=== PATIENT | female | born 1960 | race Caucasian/White ===

== ENCOUNTER → 2020-10-18 07:51 | Outpatient (CLI) | payer OTHER, SELFPAY ==
--- NOTE | ~2020-10-18 | MMUS_ITS ---
EXAMINATION: MM diagnostic lele BI w ana, US breast LT complete HISTORY: New left axillary tail asymmetry TECHNIQUE: Bilateral ML, MLO and craniocaudal full field and left spot 3-D tomosynthesis images were performed and synthetic 2-D images were generated. Left rolled medial and lateral craniocaudal views, exaggerated left craniocaudal view. 3 3V and right and the distal radial and the medial and 20 and 2 0 AP and CAD analysis was submitted and interpreted. High resolution breast ultrasound was performed. COMPARISON: 09/24/2019, 09/19/2018, 09/17/2017, 08/29/2016, 08/28/2015, 09/12/2014 bilateral digital scr eening mammogram examinations FINDINGS: MAMMOGRAPHIC FINDINGS: Bilateral benign-appearing axillary lymph nodes are noted. There is no suspicious mass, architectural distortion, malignant calcification, skin thickening or retraction in the left axillary area. There is stable mild fibroglandular asymmetry. No suspicious mass or architectural distortion, malign ant calcification, skin thickening or retraction or significant new or developing density of either b reast is detected. ULTRASOUND: At 10:00 considerably remote from the area of clinical complaint (axillary tail), there is a small ov al parallel hypoechoic or sonolucent lesion measuring approximately 1.5 x 2.9 mm, without internal va scularity or posterior shadowing. The sonographic features suggest benign process. No suspicious sonographic mass or shadowing is detected anywhere in the left breast. IMPRESSION: 1. No mammographic evidence of malignancy 2. Routine mammographic screening is recommended. BI-RADS Category 2: Benign finding(s). Reviewed, dictated and finalized at location A. 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 No mammographic evidence of malignancy 2. Routine mammographic screening is recommended. BI-RADS Category 2: Benign finding(s).
== END ==
PROVIDERS: PCP Family Medicine; Visit Provider Nurse Practitioner
DX: N64.59 Other signs and symptoms in breast (principal)
CPT/HCPCS: 76641; 77062; 77066; G0279

== ENCOUNTER → 2021-10-04 06:57 | Outpatient (CLI) | payer OTHER, SELFPAY ==
--- NOTE | ~2021-10-04 | MM_ITS ---
EXAMINATION: MM screening lele BI w ana HISTORY: Screening mammogram TECHNIQUE: Craniocaudal and mediolateral oblique 3-D tomosynthesis images were obtained and synthetic 2-D images were generated. CAD analysis was submitted and interpreted. COMPARISON: 10/18/2020 bilateral diagnostic mammogram and complete left breast ultrasound 09/2019, 09/19/2018, 09/17/2017 bilateral screening mammogram examinations BREAST PARENCHYMAL COMPOSITION: The breasts are heterogeneously dense, which may obscure small masses . FINDINGS: There is no evidence of suspicious mass, calcification, or architectural distortion to sugg est malignancy in either breast. There has been no suspicious interval change. IMPRESSION: 1. No mammographic evidence of malignancy. 2. Recommend routine screening mammography in one year. BI-RADS Category 1: Negative Reviewed, dictated and finalized at location A. 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
== END ==
PROVIDERS: PCP Internal Medicine; Visit Provider Obstetrics & Gynecology Gynecology
DX: Z12.31 Encounter for screening mammogram for malignant neoplasm of breast (principal)
CPT/HCPCS: 77063; 77067

== ENCOUNTER 2021-10-10 12:58 | Outpatient (CLI) | payer OTHER, SELFPAY ==
--- NOTE | ~2021-10-10 | CT_ITS ---
EXAMINATION: CT thoracic spine wo con DATE: 10/10/2021 13:19 INDICATION: Wedge compression fracture of unspecified thoracic vertebra. Mid and upper back pain. TECHNIQUE: Computed tomography (CT) of the thoracic spine was performed without intravenous contrast. Automated exposure control and iterative reconstruction technique were employed. The dose-length pro duct was 502.31 mGy-cm. COMPARISON: None FINDINGS: There is mild scarring at the lung apices. There is mild emphysema. There is kyphosis of th oracic spine. There is a compression fracture of T8 with 2/5 loss of height. There is mildly decrease d disc height from T3-T4 through T11-T12. There is multilevel facet joint osteoarthritis, severe bila terally at T2-T3 and T3-T4. There is mild right neural foraminal stenosis at T12-L1. There is mild le ft neural foraminal stenosis at T1-T2, T2-T3, and T3-T4. No central canal stenosis. IMPRESSION: 1. T8 compression fracture, likely acute or subacute. 2. Mild thoracic spondylosis. 3. Thoracic kyphosis. Reviewed, dictated and finalized at location A. 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
== END 2021-10-10 12:59 | disposition home or self-care (01) ==
LOC: ANHIMG 13:02
PROVIDERS: PCP Internal Medicine; Visit Provider Nurse Practitioner
DX: S22.000A Wedge compression fracture of unspecified thoracic vertebra, initial encounter for closed fracture (principal); X58.XXXA Exposure to other specified factors, initial encounter; M47.894 Other spondylosis, thoracic region
CPT/HCPCS: 72128

== ENCOUNTER → 2021-10-17 02:11 | Outpatient (CLI) | payer OTHER, SELFPAY ==
[2021-10-17 18:14] LABS: SARS-CoV-2 RNA PCR Negative
== END ==
PROVIDERS: PCP Internal Medicine; Visit Provider Pain Medicine Pain Medicine
DX: Z01.812 Encounter for preprocedural laboratory examination (principal); Z20.822 Contact with and (suspected) exposure to COVID-19
CPT/HCPCS: C9803; U0003; U0005

== ENCOUNTER → 2021-12-04 11:07 | Outpatient (CLI) | payer OTHER, SELFPAY ==
--- NOTE | ~2021-12-04 | XR_ITS ---
EXAMINATION: XR thoracic spine 3V EXAM DATE: 12/04/2021 11:36 INDICATION: Thoracic back pain. TECHNIQUE: Frontal and lateral projections of the thoracic spine as well as lateral swimmers projecti on of the upper thoracic spine for interpretation. There is no prior study for comparison. FINDINGS: There is moderate anterior wedging of a midthoracic level, could be T8, has been treated w ith methylmethacrylate injection, vertebroplasty. The vertebral bodies are aligned in the AP dimensio n. Mild thoracolumbar levoscoliosis. Mild thoracic disc disease. Paraspinal soft tissue is unremark able. IMPRESSION: 1. Treated T8 compression fracture. 2. Mild thoracic spondylosis. 3. Mild thoracolumbar levoscoliosis. Reviewed, dictated and finalized at location A. 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
== END ==
PROVIDERS: Visit Provider Nurse Practitioner Adult Health
DX: M47.894 Other spondylosis, thoracic region (principal)
CPT/HCPCS: 72072

== ENCOUNTER 2022-02-25 08:16 | Outpatient (CLI) | payer OTHER, SELFPAY ==
--- NOTE | ~2022-02-25 | US_ITS ---
EXAMINATION: US arterial ankle brachial ind EXAM DATE: 02/25/2022 08:54 INDICATION: Peripheral vascular disease. Toe discoloration when cold. TECHNIQUE: Segmental pressures and plethysmographic and Doppler waveforms of the brachial and lower e xtremity arteries were obtained. There is no prior study for comparison. FINDINGS: Right and left brachial artery pressures of 136 mm Hg and 130 mm Hg, respectively, are concordant (no rmal difference <= 30 mmHg). RIGHT LEG: The ankle-brachial index (DIVYA) is 1.07 (normal >= 0.9-1). The great toe-brachial index (TBI) is 0.37 (normal >= 0.65). The lower extremity ratios, segmental pressure gradients as follows; Dorsalis pedis: 0.88 (119 mmHg). Posterior tibial: 1.07 (145 mmHg). (Normal gradients <= 20-30 mmHg between adjacent levels on the same leg or the same levels on the two legs). Arterial waveforms are biphasic. LEFT LEG: The ankle-brachial index (DIVYA) is 0.99 (normal >= 0.9-1). The great toe-brachial index (TBI) is 0.69 (normal >= 0.65). The lower extremity ratios, segmental pressure gradients as follows; Dorsalis pedis: 0.99 (134 mmHg). Posterior tibial: 0.99 (134 mmHg). (Normal gradients <= 20-30 mmHg between adjacent levels on the same leg or the same levels on the two legs). Arterial waveforms are biphasic. IMPRESSION: 1. Right ankle-brachial index 1.07. 2. Left ankle-brachial index 0.99. 3. Moderately decreased right TBI. Reviewed, dictated and finalized at location A.
== END 2022-02-25 08:17 | disposition home or self-care (01) ==
LOC: ANHIMG 08:19
PROVIDERS: PCP Family Medicine; Visit Provider Family Medicine
DX: I73.9 Peripheral vascular disease, unspecified (principal)
CPT/HCPCS: 93922

== ENCOUNTER 2022-10-11 15:23 | Emergency (ER) | payer OTHER, SELFPAY ==
--- NOTE | ~2022-10-11 | XR_ITS ---
EXAMINATION: XR toe 1st LT min 2V INDICATION: Right first toe pain, initial encounter TECHNIQUE: Three views of the right first toe are obtained. COMPARISON: None available FINDINGS: There is an acute, traumatic, mildly comminuted fracture of the first distal phalanx. A fra cture plane extends to the interphalangeal joint. Open fracture is not excluded. Soft tissue swelling surrounds the fracture. There is mild osteoarthritis at the first metatarsophalangeal joint as well as in the visualized interphalangeal joints. IMPRESSION: 1. Comminuted fracture of the first distal phalanx extending to the interphalangeal joint. Open fract ure not excluded. Reviewed, dictated and finalized at location F. RN IMPRESSION: 1. Comminuted fracture of the first distal phalanx extending to the interphalan geal joint. Open fracture not excluded.
--- NOTE | 2022-10-11 15:29 | ED.LOWEXIN ---
HPI - Extremity Injury (Lower) General Chief Complaint: Extremity Injury, Lower Stated Complaint: injury to left big toe Time Seen by Provider: 10/11/22 15:50 Source: patient, RN notes reviewed and old records reviewed Mode of arrival: ambulatory Limitations: no limitations History of Present Illness HPI Narrative: 62-year-old female presents to the [facility] with complaints of left big toe pain, swelling and bruising since last night and she dropped a piece of furniture on it Onset (ago): day(s) (1) Related Data Home Medications Medication Instructions Recorded Confirmed calcium carbonate 1,000 mg-vitamin tablet PO 12/12/20 10/03/21 D3 20 mcg (800 unit) tablet ibuprofen 100 mg tablet 200 mg PO QID PRN 12/12/20 10/03/21 polyethylene glycol 3350 17 17 g PO DAILY 12/12/20 10/03/21 gram/dose oral powder (Miralax) atorvastatin 40 mg tablet mg 10/11/22 ibandronate 150 mg tablet mg PO 10/11/22 Allergies Allergy/AdvReac Type Severity Reaction Status Date / Time No Known Allergies Allergy Verified 10/11/22 15:35 Review of Systems Review of Systems: All systems reviewed & are unremarkable except as noted in HPI and below Constitutional: Constitutional: Reports no additional constitutional complaints, Denies chills and Denies fever(s) Eyes: Eyes: Reports no additional eye complaints ENT: Reports system reviewed and no additional complaints, except as documented Cardiovascular: Cardiovascular: Reports no additional cardiovascular complaints Respiratory: Respiratory: Reports no additional respiratory complaints Gastrointestinal: Gastrointestinal: Reports no additional gastrointestinal complaints Musculoskeletal: Musculoskeletal: Reports as per HPI Integumentary/Breasts: Skin/Breast: Reports system reviewed and no additional complaints, except as docu Neurologic: Reports system reviewed and no additional complaints, except as documented Psychiatric: Psychiatric: Reports no additional psychiatric complaints Allergic/Immunologic: Allergic/Immunologic: Reports no additional allergic/immunologic complaints [facility] Past Medical History Medical History Endometriosis Prophylactic ovary removal Family History Family History Mother Cancer Diabetes mellitus Heart disease Hypertension Cerebrovascular accident Father Cancer Hypertension Heart attack Grandparent , paternal grandmother No problems noted. Social History Social History Smoking packs per day: 1 Smoking cigarettes per day: 20.0 Years smoked: 40 Smoking pack-years: 40.00 Smoking status: Current every day smoker Tobacco type: cigarettes Alcohol intake: current Drinks per week: 7 Substance use: never Comments At the time of my signature, I reviewed and agree with the nursing past medical, surgical, social, and family history. There is no relevant family history pertinent to the patient complaint. Exam Const: General: healthy appearing, comfortable, no acute distress, well developed, alert and well nourished Nutritional Appearance: well nourished Orientation/consciousness: patient oriented x3 Limitations: no limitations HENMT: Head: normal to inspection Ears: external ears normal Eyes: General: appearance normal, both eyes and all related structures Pupils: Equal, round and reactive pupils present Neck: Neck: normal visual inspection, full ROM, no lymphadenopathy and no meningeal signs Chest: Chest palpation & inspection: normal inspection of the chest Resp: Effort & Inspection: normal respiratory effort and no use of accessory muscles Auscultation: clear to auscultation bilaterally, no crackles, no rales, no rhonchi and no wheezes Cardio: Rate: regular rate Rhythm: regular rhythm GI: GI Palp: Yes Soft to palpation and No Tender
[2022-10-11 15:32] VITALS: BP 154/90; PULSE 97; RESP 18; TEMP 36.3; O2SAT 99
== END 2022-10-11 16:32 | disposition home or self-care (01) ==
PROVIDERS: Emergency Provider Nurse Practitioner; PCP Family Medicine
DX: S92.422A Displaced fracture of distal phalanx of left great toe, initial encounter for closed fracture (principal); W22.03XA Walked into furniture, initial encounter; F17.210 Nicotine dependence, cigarettes, uncomplicated
CPT/HCPCS: 73660; 99214; G0463

== ENCOUNTER → 2022-10-14 16:09 | Outpatient (CLI) | payer OTHER, SELFPAY ==
--- NOTE | ~2022-10-14 | MM_ITS ---
EXAMINATION: MM screening lele BI w ana HISTORY: Screening mammogram TECHNIQUE: Craniocaudal and mediolateral oblique 3-D tomosynthesis images were obtained and synthetic 2-D images were generated. CAD analysis was submitted and interpreted. COMPARISON: No prior mammogram is available for comparison at this institution. BREAST PARENCHYMAL COMPOSITION: The breasts are heterogeneously dense, which may obscure small masses . FINDINGS: There is no evidence of suspicious mass, calcification, or architectural distortion to sugg est malignancy in either breast. There has been no suspicious interval change. IMPRESSION: 1. No mammographic evidence of malignancy. 2. Recommend routine screening mammography in one year. BI-RADS Category 1: Negative Reviewed, dictated and finalized at location A. 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
== END ==
PROVIDERS: PCP Family Medicine; Visit Provider Nurse Practitioner
DX: Z12.31 Encounter for screening mammogram for malignant neoplasm of breast (principal)
CPT/HCPCS: 77063; 77067

== ENCOUNTER → 2023-10-25 07:42 | Outpatient (CLI) | payer OTHER, SELFPAY ==
--- NOTE | ~2023-10-25 | MM_ITS ---
EXAMINATION: MM screening [facility] BI w ana HISTORY: Screening mammogram TECHNIQUE: Craniocaudal and mediolateral oblique 3-D tomosynthesis images were obtained and synthetic 2-D images were generated. CAD analysis was submitted and interpreted. COMPARISON: 10/14/2022, 10/04/2021, 10/18/2020 BREAST PARENCHYMAL COMPOSITION:The breasts are heterogeneously dense, which may obscure small masses. FINDINGS: No suspicious mass, calcification, or architectural distortion are identified in either akash ast to suggest malignancy. There has been no suspicious interval change. IMPRESSION: No mammographic evidence of malignancy. Recommend routine screening mammography in one year. BI-RADS Category 1: Negative Reviewed, dictated and finalized at location . 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
== END ==
PROVIDERS: PCP Nurse Practitioner; Visit Provider Nurse Practitioner
DX: Z12.31 Encounter for screening mammogram for malignant neoplasm of breast (principal)
CPT/HCPCS: 77063; 77067

== ENCOUNTER 2024-03-16 08:41 | Outpatient (CLI) | payer OTHER, SELFPAY ==
--- NOTE | ~2024-03-16 | XR_ITS ---
EXAMINATION: XR hand LT min 3V DATE: 03/16/2024 09:16 INDICATION: Left hand bumps. TECHNIQUE: 3 views of left hand were obtained. COMPARISON: None. FINDINGS: Bone alignment is normal. No fracture. There is mild osteoarthritis of first carpometacarpa l joint and some of the interphalangeal joints. There is moderate osteoarthritis of first interphalan geal joint and second and third distal interphalangeal joints. IMPRESSION: 1. Polyarticular osteoarthritis. Reviewed, dictated and finalized at location E.
--- NOTE | ~2024-03-16 | XR_ITS ---
EXAMINATION: XR hand RT min 3V DATE: 03/16/2024 09:16 INDICATION: Ganglion, right hand. TECHNIQUE: 3 views of right hand were obtained. COMPARISON: None. FINDINGS: Bone alignment is normal. No fracture. There is mild osteoarthritis of first metacarpophala ngeal joint and some of the interphalangeal joints. There is moderate osteoarthritis of second and th ird distal interphalangeal joints. IMPRESSION: 1. Polyarticular osteoarthritis. Reviewed, dictated and finalized at location E.
== END 2024-03-16 08:42 ==
LOC: MICIMG 08:43
PROVIDERS: PCP Family Medicine; Visit Provider Family Medicine
DX: M19.041 Primary osteoarthritis, right hand (principal); M19.042 Primary osteoarthritis, left hand
CPT/HCPCS: 73130

== ENCOUNTER 2024-04-30 11:40 | Outpatient (CLI) | payer OTHER, SELFPAY ==
--- NOTE | ~2024-04-30 | CT_ITS ---
CT Scan of the Chest without Contrast: Clinical Indication: Lung cancer screening, nicotine dependence Technique: Contiguous sections were acquired throughout the chest without intravenous contrast. Dose reduction technique was used on this scan by utilizing automated exposure control and iterative recon struction technique. The dose-length product (DLP) was 49.88 mGy-cm. Findings: There is no evidence of any significant mediastinal, hilar or axillary lymphadenopathy. The mediastin al soft tissues appear normal. There is no evidence of pleural or pericardial effusion. The lungs are clear. No pulmonary nodules or infiltrates are noted. Images through the upper abdomen reveal no abnormalities. T8 compression fracture with vertebroplasty cement is present. Impression: Lung RADS 1: Negative. 12 month follow-up screening CT advised. Reviewed, dictated and finalized at [facility]. Impression: Lung RADS 1: Negative. 12 month follow-up screening CT advised.
== END 2024-04-30 11:41 ==
LOC: MICIMG 11:41
PROVIDERS: PCP Physician Assistant; Visit Provider Physician Assistant
DX: Z12.2 Encounter for screening for malignant neoplasm of respiratory organs (principal); Z87.891 Personal history of nicotine dependence
CPT/HCPCS: 71271

== ENCOUNTER 2024-09-01 07:50 | Outpatient (CLI) | payer OTHER, SELFPAY ==
--- NOTE | 2024-09-01 14:47 | WPDPFTINT ---
PFT Procedure Performed PFT Procedure Performed Spirometry with Pre/Post Bronchodilator Plethysmography (Lung Vol) Diffusing Cap (DLCO) Flow Vol Loop PFT Interpretation Lung volumes were measured with the body plethysmography method. Lung volumes are unremarkable spirometry showed diminished expiratory flow rates and a diminished FEV1 to FVC see ratio 63%, consistent with obstructive airway disease. Following administration of a bronchodilator there was no significant increase in expiratory flow rates. Lung diffusion capacity is moderately reduced as 53% predicted. The diminished lung diffusion capacity coupled with a diminished alveolar volume and a normal DLCO/VA ratio may indicate loss of alveolar capillary structure as seen in emphysema or interstitial lung disease. Impression: Moderate obstructive airway disease with no response to bronchodilators on this testing. Moderately reduced lung diffusion capacity.
--- NOTE | 2024-09-01 14:49 | WPDSIXMINUTE ---
Six Minute Walk Procedure Procedure Performed Pulmonary Stress Test (6 min walk) Six Minute Walk Six Minute Walk: This 6 minute walk test was carried out with the patient breathing ambient air. The pre walk baseline oxyhemoglobin saturation was 98%. The patient walked 365 m with no stops during testing. During the walk the oxyhemoglobin saturation remained in the range of 96% to 97%. Impression: No evidence of oxyhemoglobin desaturation on this testing.
== END 2024-09-01 07:51 | disposition home or self-care (01) ==
PROVIDERS: Visit Provider Physician Assistant
DX: J44.9 Chronic obstructive pulmonary disease, unspecified (principal)
CPT/HCPCS: 94060; 94618; 94726; 94729

== ENCOUNTER 2025-01-26 15:04 | Outpatient (CLI) | payer OTHER, SELFPAY ==
--- NOTE | ~2025-01-26 | MM_ITS ---
EXAMINATION: MM screening [facility] BI w ana HISTORY: Screening mammogram TECHNIQUE: Craniocaudal and mediolateral oblique 3-D tomosynthesis images were obtained and synthetic 2-D images were generated. CAD analysis was submitted and interpreted. COMPARISON: 11/12/2023, 10/14/2022, 10/04/2021, 10/18/2020 BREAST PARENCHYMAL COMPOSITION:Not Dense. There are scattered areas of fibroglandular density. FINDINGS: No suspicious mass, calcification, or architectural distortion are identified in either akash ast to suggest malignancy. There has been no suspicious interval change. IMPRESSION: No mammographic evidence of malignancy. Recommend routine screening mammography in one year. BI-RADS Category 1: Negative Reviewed, dictated and finalized at location . 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
== END 2025-01-26 15:05 | disposition home or self-care (01) ==
LOC: MICIMG 15:05
PROVIDERS: PCP Physician Assistant; Visit Provider Nurse Practitioner
DX: Z12.31 Encounter for screening mammogram for malignant neoplasm of breast (principal)
CPT/HCPCS: 77063; 77067

== ENCOUNTER 2025-01-26 15:10 | Outpatient (CLI) | payer OTHER, SELFPAY ==
--- NOTE | ~2025-01-26 | XR_ITS ---
3 VIEWS LUMBAR SPINE Ordering provider: Tunde Tang MD History: . M81.0 - Age-related osteoporosis without current patholog... . Comparison: None. FINDINGS: VERTEBRAL BODIES: No visible fracture or subluxation. Degenerative changes of the spine. Mild levosco liosis. DISK SPACES: Degenerative disc disease at the level of L2-L3 and L5-S1. Multilevel facet joint diseas e. SOFT TISSUES: Atherosclerotic changes of the aorta. IMPRESSION: No acute osseous abnormality lumbar spine. Multilevel degenerative disc disease. Reviewed, dictated and finalized at location A. 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
--- NOTE | ~2025-01-26 | XR_ITS ---
3 VIEWS THORACIC SPINE Ordering provider: Tunde Tang MD History: . back pain . Comparison: None. FINDINGS: VERTEBRAL BODIES: Compression fracture with vertebroplasty seen in the midthoracic area. Otherwise No rmal height and alignment. No visible fracture or subluxation. Degenerative changes of the spine. Kyp hosis. DISK SPACES: Narrowing of the disc spaces in the lower thoracic area. SOFT TISSUES: Normal. IMPRESSION: No acute osseous abnormality of the thoracic spine. Multilevel degenerative disc disease. Reviewed, dictated and finalized at location A. 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
== END 2025-01-26 15:11 | disposition home or self-care (01) ==
LOC: MICIMG 15:12
PROVIDERS: PCP Physician Assistant; Visit Provider Internal Medicine
DX: M81.0 Age-related osteoporosis without current pathological fracture (principal); M51.34 Other intervertebral disc degeneration, thoracic region; M51.369 Other intervertebral disc degeneration, lumbar region without mention of lumbar back pain or lower extremity pain; M51.370 Other intervertebral disc degeneration, lumbosacral region with discogenic back pain only
CPT/HCPCS: 72070; 72100

== ENCOUNTER 2025-05-04 09:11 | Outpatient (CLI) | payer OTHER, SELFPAY ==
--- NOTE | ~2025-05-04 | CT_ITS ---
CT Scan of the Chest without Contrast: Clinical Indication: Lung cancer screening, nicotine dependence Technique: Contiguous sections were acquired throughout the chest without intravenous contrast. Dose reduction technique was used on this scan by utilizing automated exposure control and iterative recon struction technique. The dose-length product (DLP) was 42.03 mGy-cm. COMPARISON: 04/30/2024 Findings: There is no evidence of any significant mediastinal, hilar or axillary lymphadenopathy. The mediastin al soft tissues appear normal. There is no evidence of pleural or pericardial effusion. Stable biapical scarring. Calcified right lower lobe granuloma present. Images through the upper abdomen reveal no abnormalities. T8 vertebroplasty noted. Impression: Lung RADS 2: Benign appearance. 12 month follow-up screening CT advised. Reviewed, dictated and finalized at [facility]. Impression: Lung RADS 2: Benign appearance. 12 month follow-up screening CT advised.
== END 2025-05-04 09:12 | disposition home or self-care (01) ==
PROVIDERS: PCP Physician Assistant; Visit Provider Physician Assistant
DX: Z12.2 Encounter for screening for malignant neoplasm of respiratory organs (principal); Z87.891 Personal history of nicotine dependence
CPT/HCPCS: 71271

== ENCOUNTER 2025-10-24 07:49 | Outpatient (CLI) | payer OTHER, SELFPAY ==
--- NOTE | ~2025-10-24 | DEXA_ITS ---
Bone Density Report Name: ARETHA DAVID Age: 65 Sex: Female Ethnicity: White Date of : 1960 Indication: postmenopausal; screening for osteoporosis; parental hip fracture; height loss; prior fracture; asthma or emphysema; Referring Provider: NOE LUIS Study: Bone densitometry was performed. Exam Date: October 24, 2025 Accession number: [id number] Bone Density: Region BMD T-score Z-score Classification AP Spine(L2, L3, L4) 1.044 -0.3 1.5 Normal Femoral Neck (Left) 0.701 -1.3 0.2 Osteopenia Total Hip (Left) 0.824 -1.0 0.2 Normal Femoral Neck (Right) 0.673 -1.6 -0.1 Osteopenia Total Hip (Right) 0.806 -1.1 0.1 Osteopenia Total Hip Mean 0.815 -1.1 0.2 Osteopenia World Health Organization criteria for BMD impression classify patients as: Normal (T-score at or above -1.0), Osteopenia (T-score between -1.0 and -2.5), or Osteoporosis (T-score at or below -2.5). 10-year Fracture Risk: FRAX not reported because: Prior hip or vertebral fracture Clinical Information Provided by Patient: Have had a previous hip or vertebral fracture Has had a low trauma fracture Parent has had a hip fracture Has used the following medications: Boniva (i.e. ibandronate), Vitamin D, Calcium Has the following medical conditions: Asthma or Emphysema Patient maximum height was 67.0 Menopause Age: 51 No regular weight bearing exercise Drinks caffeinated beverages Onset of menses at age 12 Number of children 1 Impression: The patient has low bone mass, based on the Right Femoral Neck T-score. The patient has risk factors, including: parental hip fracture, previous fracture. Discussion: INCREASED RISK OF FRACTURE DUE TO HISTORY OF FRACTURE. The patient's previous fracture puts the patient at high risk of a future fracture. In untreated patients, the risk of osteoporotic fracture increases approximately two-fold for each 1.0 SD decrease in T-score. Low bone density is not the only risk factor for fracture; also consider factors such as patient's age, frailty or poor health, risk of falling, risk of injury, previous osteoporotic fracture, family history of osteoporosis, cigarette smoking, low body weight, etc. Not everyone with a low trauma fracture has osteoporosis; osteomalacia and other metabolic bone disorders should also be considered. Patients who have osteoporosis should be evaluated for specific diseases and conditions (secondary causes) that may cause or contribute to bone loss and fracture risk. National Osteoporosis Foundation (NOF) recommends pharmacologic intervention for patients with a prior hip or vertebral fracture regardless of BMD T-score. The patient should follow a healthful lifestyle (good nutrition with adequate calcium and vitamin D, and appropriate weight-bearing exercise). Follow-Up: Consider a repeat BMD and Vertebral Fracture Assessment (VFA) exam in 2 years or sooner if medically necessary, to reassess this patient's status. Reported by: ABHISHEK on 10/24/2025 8:56:00 AM. Reviewed, dictated and finalized at location A.
--- OUTSIDE RECORDS SUMMARY | 2025-10-24 07:58 | XMS_ITS | Data Portability ---
Author Organization [place] - [employer], Main Office Address [address] [place] [address] Care Team Providers Care Disease Case Manager Rn Name Role Phone SUZANNE HOWELL Primary Care Provider SUZANNE HOWELL Referring Provider [phone] Assessment No assessment recorded. Plan of Treatment Reminders Order Date Submit Date Provider Last Modified By Organization Details Last Modified Time Details Appointments None recorded. Lab HbA1c (hemoglobin A1c), blood 2022 023 [employer] [facility], [address], [place], [address], 3 13:09:22 insulin, serum 2022 023 [employer] [facility], [address], [place], [address], 3 13:09:18 CMP, serum or plasma 2022 023 [employer] [facility], [address], [place], [address], 3 13:09:17 TSH, serum or plasma 2022 023 [employer] [facility], [address], [place], [address], 3 13:09:20 T4, free, serum 2022 023 [employer] [facility], [address], [place], [address], 3 13:09:19 cortisol, am, serum 2022 023 [employer] [facility], [address], [address], [place], [address], 3 18:56:55 dexamethaso ne, serum 2022 023 [employer] [facility], [address], [address], [place], [address], 3 18:56:54 vitamin D, 25-hydroxy, total, serum 2022 023 [employer] [facility], [address], [address], [place], [address], 3 13:09:21 PTH (parathyroi d hormone), intact + calcium, serum or plasma 2022 023 [employer] [facility], [address], [address], [place], [address], 3 13:09:16 Referral endocrinolo gy referral - Please call patient to schedule an appointment . Thank you. [address] - Endocrinology , [address], [address], [place], [address], 4 09:16:[address] referral - Please call patient to schedule an appointment . Thank you. [address] - Pulmonology, Pulmonary & Sleep Medicine, [address], [address], [place], [address], 4 09:04:[address] referral 2022 023 [email or web address] 3 Kira Cadena MD (Dermatology) , [address], [address], [place], [address], 3 10:09:31 Procedures None recorded. Surgeries None recorded. Imaging XR, hand 2023 024 [email or web address] Not available 4 13:10:18 Medication Orders ibandronate 150 mg tablet 2023 024 [facility] [address], [place], [address], 4 10:09:08 Anoro Ellipta 62.5 mcg-25 mcg/actuati on powder for inhalation 2023 024 [facility] [address], [address], 4 10:09:08 ibandronate 150 mg tablet 2022 023 [facility] [address], [place], [address], 3 09:47:57 Anoro Ellipta 62.5 mcg-25 mcg/actuati on powder for inhalation 2022 023 [facility] [address], [place], [address], 3 08:17:15 triamcinolo ne acetonide 0.1 % topical cream 2022 023 [facility] [address], [place], [address], 3 08:19:34 dexamethaso ne 1 mg tablet 2022 023 [email or web address] [facility] [address], [place], [address], 3 08:05:33 Patient TargetsNo targets recorded. Patient InstructionsNo instructions recorded. 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 Thank you. Referring Physician: Ashley Ceja [facility] Medicine, Encounter Date: 02/25/2024 Endocrinology Referral for P ostmenopausal osteoporosis Please call patient to schedule an appointment. Thank you. Referring Physician: Ashley Ceja [facility], Encounter Date: 02/25/2024 Results Created Date Observation Date Name Description Value Unit Range Abnormal Flag Note LastModifiedBy Organization Detail LastModifiedTime 03/20/2003/26/2023 DEXAM ETHAS ONE dexamethason e 209 NG/dL Refer ence Range s for Dexam ethas one: Basel ine: Less than 20 ng/dL 1 mg dexam ethas one overn ight: 180-5 50 ng/dL (8:00 -10:0 0 AM) This test was devel oped and its blanca tical perfo rmanc e rajesh cteri stics have been deter mined by [facility] Randy al . It has not been clear ed or appro cara by FDA. This assay has been valid ated pursu ant to the CLIA regul ation s and is used for clini blayne purpo ses. Not Available [employer] [facility] [address] [place], [address], 03/26/2023 18:56:54 03/20/2003/26/2023 CORTI LUIS ARMANDO, A.M. cortisol, A.M. 0.9 mcg/d L low Refer ence Range 8 a.m. (7-9 a.m.) Speci men: 4.0-2 2.0 Not Available [employer] [facility] [address] [place], [address], 03/26/2023 18:56:55 07/23/20 23 07/24/2023 PTH, INTAC T AND CALCI UM parathyroid hormone, intact 39 pg/mL 16-77 normal Inter preti ve Guide Intac t PTH Calci um ----- ----- ----- --- ----- ----- ----- -- Barbara l Parat hyroi d Barbara l Barbara l Hypop alonzo yroid ism Low or Low Barbara l Low Hyper parat hyroi dism Prima ry Barbara l or High High Secon alex High Barbara l or Low Terti hayley High High Non-P alonzo yroid Hyper calce tyler Low or Low Barbara l High Not Available [address], [address], 07/24/2023 13:09:15 07/23/20 23 07/24/2023 PTH, INTAC T AND CALCI UM calcium 9.3 mg/dL 8.6-10 .4 normal Not Available [address], [address], 07/24/2023 13:09:15 07/23/20 23 07/24/2023 COMPR EHENS REGINALD METAB OLIC PANEL glucose 103 mg/dL 65-99 high Fasti ng refer ence inter jeremy For someo ne witho ut known diabe bobby, a gluco se value betwe en 100 and 125 mg/dL is consi stent with predi abete s and shoul d be confi rmed with a follo w-up test. Not Available [address], [address], 07/24/2023 13:09:17 07/23/20 23 07/24/2023 COMPR EHENS REGINALD METAB OLIC PANEL urea nitrogen (BUN) 12 mg/dL 7-25 normal Not Available [employer] [address], [address], 07/24/2023 13:09:17 07/23/20 23 07/24/2023 COMPR EHENS REGINALD METAB OLIC PANEL creatinine 0.92 mg/dL 0.50-1 .05 normal Not Available [employer] [address], [address], 07/24/2023 13:09:17 07/23/20 23 07/24/2023 COMPR EHENS REGINALD METAB OLIC PANEL eGFR 70 mL/mi n/1.7 3m2 > or = 60 normal Not Available [address], [address], 07/24/2023 13:09:17 07/23/20 23 07/24/2023 COMPR EHENS REGINALD METAB OLIC PANEL BUN/creatini ne ratio SEE NOTE: (calc ) 6-22 Not Repor manasa: BUN and Creat inine are withi n refer ence range . Not Available [address], [address], 07/24/2023 13:09:17 07/23/20 23 07/24/2023 COMPR EHENS REGINALD METAB OLIC PANEL sodium 141 mmol/ L 135-14 6 normal Not Available [address], [address], 07/24/2023 13:09:17 07/23/20 23 07/24/2023 COMPR EHENS REGINALD METAB OLIC PANEL potassium 4.2 mmol/ L 3.5-5. 3 normal Not Available [address], [address], 07/24/2023 13:09:17 07/23/20 23 07/24/2023 COMPR EHENS REGINALD METAB OLIC PANEL chloride 106 mmol/ L 98-110 normal Not Available [address], [address], 07/24/2023 13:09:17 07/23/20 23 07/24/2023 COMPR EHENS REGINALD METAB OLIC PANEL carbon dioxide 28 mmol/ L 20-32 normal Not Available [address], [address], 07/24/2023 13:09:17 07/23/20 23 07/24/2023 COMPR EHENS REGINALD METAB OLIC PANEL calcium 9.3 mg/dL 8.6-10 .4 normal Not Available [address], [address], 07/24/2023 13:09:17 07/23/20 23 07/24/2023 COMPR EHENS REGINALD METAB OLIC PANEL protein, total 6.7 g/dL 6.1-8. 1 normal Not Available [address], [address], 07/24/2023 13:09:17 07/23/20 23 07/24/2023 COMPR EHENS REGINALD METAB OLIC PANEL albumin 4.7 g/dL 3.6-5. 1 normal Not Available [address], [address], 07/24/2023 13:09:17 07/23/20 23 07/24/2023 COMPR EHENS REGINALD METAB OLIC PANEL globulin 2.0 g/dL_ (calc ) 1.9-3. 7 normal Not Available [address], [address], 07/24/2023 13:09:17 07/23/20 23 07/24/2023 COMPR EHENS REGINALD METAB OLIC PANEL albumin/glob ulin ratio 2.4 (calc ) 1.0-2. 5 normal Not Available [address], [address], 07/24/2023 13:09:17 07/23/20 23 07/24/2023 COMPR EHENS REGINALD METAB OLIC PANEL bilirubin, total 0.6 mg/dL 0.2-1. 2 normal Not Available [address], [address], 07/24/2023 13:09:17 07/23/20 23 07/24/2023 COMPR EHENS REGINALD METAB OLIC PANEL alkaline phosphatase 54 U/L 37-153 normal Not Available [address] [address] [place], [address], 07/24/2023 13:09:17 07/23/20 23 07/24/2023 COMPR EHENS REGINALD METAB OLIC PANEL AST 18 U/L 10-35 normal Not Available [facility] [employer] [address], [address], 07/24/2023 13:09:17 07/23/20 23 07/24/2023 COMPR EHENS REGINALD METAB OLIC PANEL ALT 22 U/L 6-29 normal Not Available [address], [address], 07/24/2023 13:09:17 07/23/20 23 07/24/2023 INSUL IN insulin 7.9 uIU/m L normal Refer ence Range < or = 18.4 Risk: Optim al < or = 18.4 Moder ate NA High >18.4 Adult cardi ovasc ular event risk categ ory cut point s (opti mal, moder ate, high) are based on Insul in Refer ence Inter jeremy studi es perfo rmed at [facility] in 2021. Not Available [address], [address], 07/24/2023 13:09:18 07/23/20 23 07/24/2023 T4, FREE T4, free 1.1 NG/dL 0.8-1. 8 normal Not Available [address], [address], 07/24/2023 13:09:19 07/23/2007/24/2023 TSH TSH 1.63 mIU/L 0.40-4 .50 normal Not Available [address], [address], 07/24/2023 13:09:20 07/23/20 23 07/24/2023 VITAM IN D,25- OH,TO VICTOR MANUEL,I A vitamin D,25-oh,tota l,ia 53 NG/mL 30-100 normal Vitam in D Statu s 25-OH Vitam in D: Defic iency : <20 ng/mL Insuf ficie ncy: 20 - 29 ng/mL Optim al: > or = 30 ng/mL For 25-OH Vitam in D testi ng on patie nts on D2-houser pplem entat ion and patie nts for whom quant itati on of D2 and D3 fract ions is requi red, the [facility](TM ) 25-OH VIT D, (D2,D 3), LC/MS /MS is recom ana d: order code 90407 (zoya ents >2yrs ). See Note 1 Note 1 For addit ional infor sheyla marroquin refer to http: //[facility] natalie Fischer stDia gnost ics.c om/fa q/FAQ 199 (This link is being provi ded for infor farzana cheatham/ jennifer mtz purpo ses only. ) Not Available [employer] [facility] [address] [place], [address], 07/24/2023 13:09:21 07/23/20 23 07/24/2023 HEMOG LOBIN A1C hemoglobin A1C 5.6 %_of_ total _HGB <5.7 normal For the purpo se of paul simeon for the prese nce of diabe bobby: <5.7% Consi stent with the absen ce of diabe bobby 5.7-6 .4% Consi stent with incre ased risk for diabe bobby (pred iabet es) > or =6.5% Consi stent with diabe bobby This assay resul t is consi stent with a decre ased risk of diabe bobby. Curre ntly, no conse nsus exist s kourtney august use of hemog lobin A1c for diagn osis of diabe bobby in child brenna. Accor mata to Pernelleri can Diabe bobby Assoc iatio n (ADA) guide lines , hemog lobin A1c <7.0% repre sents optim al contr ol in non-p regna nt diabe tic patie nts. Diffe rent metri cs may apply to speci fic patie nt popul ation s. Stand ards of Medic al Care in Diabe bobby(A DA). Not Available [facility] [address] [address] , [place], [address], 07/24/2023 13:09:22 10/11/20 22 10/11/2022 XR, foot No observ ation record ed. [id number] [facility] [address], [place], [address], 01/22/2023 23:59:48 10/14/20 22 10/14/2022 MAMMO , scree cailin, bilat eral No observ ation record ed. [id number] [facility] [address], [place], [address], 01/22/2023 23:59:48 10/20/20 23 10/20/2023 DEXA No observ ation record ed. [email or web address] [facility] [address] [place], [address], 10/20/2023 14:17:42 03/16/20 24 03/16/2024 XR, hand No observ ation record ed. llalor [facility] [address], [place], [address], 03/26/2024 09:35:10 Result Notes None recorded. Problems Name Problem SNOMED Code Status Onset Date Resolution Date Notes Provider Name and Address Organization Details Recorded Time Prediabete s 621795234 Active 2021 Not Available [facility] 3 23:58:33 Postmenopa usal osteoporos is 474577328 Active 2021 Not Available [employer] 3 23:58:33 Impaired fasting glycemia 042009865 Active 2022 Ashley Allen MD [address] [facility], [facility] [address], [place], [address] , [facility] [employer] [facility] 3 09:50:05 Chronic obstructiv e pulmonary disease 41369878 Active 2022 Ashley Ceja MD [address] [address], [place], [address] , [employer] 3 08:09:20 Skin lesion 94354334 Active 2022 Ashley Ceja MD [address], [place], [address] , [employer] [facility] 3 08:18:10 Osteoporos is 15674579 Active 2022 Ashley Ceja MD [address], [address], [place], [address] , [employer] 3 08:40:31 Hyperlipid emia 77408662 Active 2022 Ashley Ceja MD [address] [address], [place], [address] , [employer] 3 08:41:55 Labile hypertensi on due to being in a clinical environmen t 832196595 Active 2022 Ashley Allen MD [address] [address], [place], [address] , [employer] 3 10:04:42 Ganglion cyst of right hand 2577329400196 07 Active 2023 Ashley Ceja MD [address] [address], [place], [address] , [employer] 4 10:07:27 Peripheral vascular disease 780307784 Active 2023 Ashley Ceja MD [address] [address], [place], [address] , [employer] 4 14:44:52 Problem Notes None recorded. Medical Equipment None Reported. Allergies No known drug allergies Medications Name Sig Start Date Stop Date Status Note LastModified by Organization Details LastModified Time cyclobenzap rine 10 mg tablet 02/21 completed Not Available Not Available Not Available atorvastati n 40 mg tablet TAKE 1 TABLET BY MOUTH EVERYDAY AT BEDTIME active Not Available Not Available No t Available atorvastati n 20 mg tablet TAKE 1 TABLET BY MOUTH NIGHTLY AT BEDTIME 07/30 completed Not Available Not Available Not Available alendronate 70 mg tablet TAKE ONE TABLET BY MOUTH ONCE WEEKLY SAME MORNING EACH WEEK 03/18 completed Not Available Not Available Not Available acetaminoph en 300 mg-codeine 30 mg tablet TAKE 1 TABLET BY MOUTH EVERY 8 HOURS NEEDED FOR PAIN 03/18 completed Not Available Not Available Not Available triamcinolo ne acetonide 0.1 % topical cream APPLY THIN COAT TO AFFECTED AREA TWICE A DAY active Not Available Not Available No t Available ciclopirox 8 % topical solution APPLY TO NAILS ONCE DAILY active Not Available Not Available No t Available terbinafine HCl 250 mg tablet TAKE 1 TABLET BY MOUTH EVERY DAY active Not Available Not Available No t Available dexamethaso ne 1 mg tablet TAKE 1 TABLET BY MOUTH AT 10PM THE NIGHT BEFORE 8 AM CORTISOL 05/06 completed Not Available Not Available Not Available lidocaine 5 % topical patch 02/21 completed Not Available Not Available Not Available aspirin 81 mg chewable tablet CHEW 1 TABLET BY MOUTH DAILY. 03/18 completed Not Available Not Available Not Available methylpredn isolone 4 mg tablets in a dose pack 02/21 completed Not Available Not Available Not Available albuterol sulfate HFA 90 mcg/actuati on aerosol inhaler INHALE 2 PUFF BY MOUTH EVERY FOUR TO SIX HOURS NEEDED FOR SHORTNESS OF BREATH active Not Available Not Available No t Available ondansetron 4 mg disintegrat ing tablet DISSOLVE 1 TABLET ON TONGUE 30 MINS PRIOR TO PREP DOSE THEN, EVERY 4 TO 6 HOURS NEEDED FOR NAUSEA active Not Available Not Available No t Available ibandronate 150 mg tablet TAKE 1 TABLET BY MOUTH ONCE PER MONTH 2023 active Not Available Not Available Not [employer] calcium 2020 active Not Available Not Available Not [employer]able Miralax 2020 active Not Available Not Available Not [employer] Anoro Ellipta 62.5 mcg-25 mcg/actuati on powder for inhalation INHALE 1 PUFF EVERY DAY BY INHALATIO N ROUTE active Not Available Not Available No t Available Vitamin B12 03/18 completed Not Available Not Available Not Available Plenvu 140 gram-9 gram-5.2 gram powder packs TAKE FIRST DOSE AT 6:00PM THE NIGHT BEFORE AND SECOND DOSE 6 HOURS PRIOR TO PROCEDURE . DIRECTED 05/06 completed Not Available Not Available Not Available Vitals Date Recorded Body height Body mass index (BMI) Body weight Body temperature Heart rate Oxygen saturation Systolic And Diastolic Provider Name and Address Organization Details Last Updated DateTime 4 167.64 cm 22.1 kg/m2 84975.1 5 g 97.3 [degF] 86 /min 96 % 122/78 mm[Hg] Sin Villalobos RN [facility] [employer] [facility] 4 09:44:32 Date Recorded Body height Body mass index (BMI) Body weight Body temperature Respiratory rate Heart rate Systolic And Diastolic Provider Name and Address Organization Details Last Updated DateTime 3 167.64 cm 21.4 kg/m2 82032.3 5 g 97.5 [degF] 18 /min 88 /min 135/80 mm[Hg] GABY Lopez [facility] [employer] [facility] 3 09:23:14 Date Recorded Body height Body mass index (BMI) Body weight Body temperature Heart rate Oxygen saturation Systolic And Diastolic Provider Name and Address Organization Details Last Updated DateTime 3 167.64 cm 21 kg/m2 29395.0 1 g 97 [degF] 92 /min 95 % 142/90 mm[Hg] Sin Villalobos RN [facility] [employer] [facility] 3 07:59:10 Date Recorded Body height Body mass index (BMI) Body weight Heart rate Body temperature Systolic And Diastolic Provider Name and Address Organization Details Last Updated DateTime 3 167.64 cm 21.3 kg/m2 60633.4 7 g 94 /min 97.8 [degF] 154/90 mm[Hg] Isabell Woodward MA [facility] [employer] [facility] 3 09:28:09 Date Recorded Body mass index (BMI) Body height Oxygen saturation Heart rate Body temperature Body weight Systolic And Diastolic Provider Name and Address Organization Details Last Updated DateTime 2 20.3 kg/m2 167.64 cm 97 % 88 /min 97.9 [degF] 07709.6 4 g 121/80 mm[Hg] Not Available [facility] 23:58:01 Social History Question Answer Notes LastModified by Organizat ion Details LastModified Time Tobacco Smoking Status Current Every Day Smoker started in her teens Not Available [facility] 01/22/2023 23:57:33 In The 14 Days Before Symptom Onset, Have You Had Close Contact With A Laboratory-confir med COVID-19 While That Case Was Ill? No [id number] Information not available 01/22/2023 In The 14 Days Before Symptom Onset, Have You Had Close Contact With A Person Who Is Under Investigation For COVID-19 While That Person Was Ill? No [id number] Information not available 01/22/2023 What Type Of Diet Are You Following? REGULAR [id number] Information not available 01/22/2023 What Was The Date Of Your Most Recent Tobacco Screening? 05/06/2023 [email or web address] Information not available 05/06/2023 How Much Tobacco Do You Smoke? 1 PPD [id number] Information not available 01/22/2023 Have You Recently Traveled Abroad? No [id number] Information not available 01/22/2023 Do You Have Any Dietary Restrictions? No [id number] Information not available 01/22/2023 Sex: Unknown Functional Status Question Answer Note LastModified by Organizat ion Details LastModified Time What is your level of alcohol consumption? Moderate [id number] Information not available 01/22/2023 What is your exercise level? Moderate [id number] Information not available 01/22/2023 Mental Status None recorded. Family History Relationship Description Onset Age of this Age Resolved Age Notes LastModified by Organization Details LastModified Time Maternal Grandmother Diabetes mellitus [id number] Not available 01/22/2023 23:57:50 Father Hypertensive disorder [id number] [id number] Not available 01/22/2023 23:57:50 Father Heart disease [id number] [id number] Not available 01/22/2023 23:57:50 Father Diabetes mellitus [id number].862 [id number] Not available 01/22/2023 23:57:50 Father Primary malignant neoplasm unknow n type?p rostat e or blamitalie r [id number] [id number] Not available 01/22/2023 23:57:50 Mother Hypertensive disorder [id number].155 [id number] Not available 01/22/2023 23:57:50 Mother Diabetes mellitus [id number] [id number] Not available 01/22/2023 23:57:50 Mother Cerebrovascu lar accident [id number].990 [id number] Not available 01/22/2023 23:57:50 Mother Malignant neoplasm of stomach MIGRATION.781 [id number] Not available 01/22/2023 23:57:50 Mother Venous varices MIGRATION.377 [id number] Not available 01/22/2023 23:57:50 Sister Venous varices MIGRATION.334 [id number] Not available 01/22/2023 23:57:50 Medical History Condition Response HEADACHES/MIGRAINES Y HAVE YOU BEEN HOSPITALIZED OR SEEN IN [facility] ER IN THE PAST YEAR ? Y HIGH CHOLESTEROL / HYPERLIPIDEMIA Y Gynecological HistoryNo gynecological history recorded. Obstetrics History GPAL:G 0 P 0 0 0 0 Immunizations Vaccine Type Date Status Note Provider [facility] e and Address Organization Details Recorded Time SARS-COV-2 (COVID-19) vaccine, UNSPECIFIED 1 completed Not Available [facility] 01/22/2023 23:59:38 Influenza, split virus, quadrivalent, preservative 1 completed Not Available [facility] 01/22/2023 23:59:38 SARS-COV-2 (COVID-19) vaccine, UNSPECIFIED 1 completed Not Available [facility] 01/22/2023 23:59:38 SARS-COV-2 (COVID-19) vaccine, UNSPECIFIED 1 completed Not Available [facility] 01/22/2023 23:59:38 Past Encounters Encounter ID Performer Location Encounter Start Date Encounter Closed Date Diagnosis/Indication Diagnosis SNOMED-CT Code Diagnosis ICD10 Code Diagnosis IMO Codes Diagnosis Note [id number] Santosh Jones MD [facility] [place]on Joyner [address] [place] [address] 10/11/2021 00:00:00 10/11/2021 10:07:36 [id number] Ashley Ceja MD [facility] [facility] [address] [place] [address] 02/21/2022 00:00:00 02/21/2022 09:14:05 [id number] Ashley Ceja MD [facility] [place] [facility] [address] [facility] [address] [place] [address] 03/25/2022 00:00:00 03/25/2022 08:39:25 [id number] Ashley Allen MD [facility] Endo Carlin [address] [place] [address] 04/29/2022 00:00:00 04/29/2022 14:51:16 [id number] Ashley Ceja MD [facility] Primary Care [address] [place] [address] 05/06/2022 00:00:00 05/06/2022 09:00:49 [id number] [facility] [place] Carlin [address] [place] [address] 07/30/2022 00:00:00 07/30/2022 11:28:05 [id number] Ashley Ceja MD [facility] Primary Care [address] [place] [address] 11/05/2022 00:00:00 11/22/2022 07:53:01 [id number] Ashley Allen MD [facility] Endo Carlin [address] [place] [address] 03/18/2023 09:11:39 03/18/2023 10:08:40 Postmenopausal osteoporosis 769701555 M81.0 She has had recent fractures/ more trauma induced than fragility. She has had weight gain and evidence of mild hyperglyce tyler. Will send for low dose dexa suppressio n testing to screen for hypercorti solic state. Her parathyroi d panel, vitamin D and 24 hour urinary calcium levels were all in normal range. Will continue on ibandronat e for now as she is tolerating well but hasn't been on treatment not even a year yet-alendr juliette started last April- she will be due for bone density this winter to assess for response to therapy. Impaired f asting glycemia 934338436 R73.01 Continue to monitor a1c/insuli n. Last a1c at 5.8%. Recommende d she incorporat e natural insulin electric detector operator s such as pears, apples, cinnamon, paddy and sweet potatoes to help mobilize her endogenous insulin. Recommende d up to 150 minutes of moderate level activity/e xercise weekly. Spent up to 25 minutes preparing to see the patient (eg, review of tests), obtaining and/or reviewing separately obtained history, performing a medically appropriat e examinatio n and evaluation , counseling and educating the patient, ordering medication s, tests, along with documentin g clinical informatio n in the electronic health record, independen tly interpreti ng results and communicat ing results to the patient. RTC in 6 months. Patient was provided a handwritte n lab order which contains our fax number. If she chooses to go outside of the [facility] system to obtain labwork she was advised to provide our fax number and my informatio n to the lab she will be obtaining labwork from in order to have her labs properly forwarded over for me to review so there is no loss of follow up due to use of outside network. She was also advised to contact our clinic informing us that she has completed her labwork so we are aware we will need to reach out to the appropriat e laboratory to request her results be forwarded to us so I might have the ability to review and make further medical decision making in her case. She voiced understand ing. [id number] Ashley Ceja MD [facility] Primary Care [address] [place] [address] 05/06/2023 07:54:42 05/06/2023 08:21:59 Adult health examination [id number] Z00.00 CT lung done 02/2023 repeat in 1 yearWork on smoking cessationC olonoscopy 07/08/22 repeat in 5 yearsDEXA due in 10/2023-se es endocrinol ogjasbir Hernandez get fasting labs with cardiology and Dr. Allen this fallHas completed shingles vaccine seriesFlu vaccine annually, covid booster per cdc guidelines Has received pneumonia vaccines per pulmonary recommenda tionsMammo gram done 10/15 repeat due 10/16 Chronic ob structive pulmonary disease 21079197 J44.9 Refill givensees pulmonaryC T lung done 02/2023 repeat 02/2024 Skin lesion 92930818 L98 .9 Osteoporosis 38453812 M8 1.0 on ibandronat e monthlyDEX A due 10/2023see s endocrinol ogy Dr. Allen Hyperlipidemia 15567565 E78.[address] Sandoval, will see him for labs and f/u next month [id number] Ashley Allen MD [facility] [address] [place] [address] 08/18/2023 09:15:07 08/18/2023 11:10:11 Postmenopausal osteoporosis [id number] M81.0 Vit d and parathyroi d panel remain in normal range. Continue vitamin D 3 800 IU daily along with calcium 1200 mg daily. Will continue on ibandronat e as she has been on this for 1.5 years and tolerating well. She is aware she is due for repeat bone density scan this winter. She is aware of my resignatio n and will follow up with PCP to complete this or new endo depending on PCP preference . 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 Maintain log and present to PCP. She may need low dose monotherap y as she appears to have stage 2 hypertensi on but she is under a lot of stress so may be reduced with destressin g techniques /walking/y oga etc. Impaired f asting glycemia [id number] R73.01 A1c 5.6% down from 5.8%. Recommende d she incorporat e natural insulin electric detector operator s such as pears, apples, cinnamon, paddy and sweet potatoes to help mobilize her endogenous insulin. Recommende d up to 150 minutes of moderate level activity/e xercise weekly. Spent up to 25 minutes preparing to see the patient (eg, review of tests), obtaining and/or reviewing separately obtained history, performing a medically appropriat e examinatio n and evaluation , counseling and educating the patient, ordering medication s, tests, along with documentin g clinical informatio n in the electronic health record, dragan alegre interpreti ng results and communicat ing results to the patient. Patient can be followed by PCP - she/he is aware of my resignatio n and last day of September 05. If needed his/her PCP can refer patient to another endocrinol ogist in the area. All questions /concerns answered and refills necessary at visit today. [id number] Ashley Ceja MD [facility] Primary [facility] [address] [address] [place] [address] 02/25/2024 09:37:46 02/25/2024 10:11:41 Chronic obstructive pulmonary disease [id number] J44.9 Refill givensees pulmonaryC T lung done 02/2023 repeat 02/202402/25/24: needs new pulmonary, her current is far away and retiringne w pulmonary referral given, can get CT scan with new pulmonary Postmenopa usal osteoporosis 777235194 M81.0 R73.03 endocrinol ogy referral givenrefil l given Ganglion c yst of right hand [id number] 06876 M67.441 likely ganglion cystmay have some arthritisc heck xray Health Concerns Section Related Observation LastModified by Organization Detai ls LastModified Time None Recorded Concern Status LastModified by Organization Details LastModified Time None Recorded Advance Directives Directive None Recorded Payers Insurance Date Sequence Insurance Name Policy Number Policy Hoover Covered Member ID Hoover Member ID Guarantor Name 02/25/2024 1 [employer] [id number] Daniel Terry [id number] Maddi Terry Notes Date Note Type Note Provider Name and Address Organization Details Recorded Time 03/18/2023 text/html ROS as noted in the HPI 62 yo female comes in for follow up in management of postmenopausal osteoporosis and impaired glucose/prediabetes At her last visit in Jul we had patient stop alendronate and switch to ibandronate 150 mg once a month to see if this decreases symptoms of indigestion and hot flashes. We had patient continue on vitamin D 800 IU daily along with calcium 1200 mg daily along with weight bearing exercise. She has been on bisphosphonate therapy since April 2022. we had patient continue on natural insulin sensitizers-patient has gained 11 pounds since last summer but her BMI is in normal range at 21. She ended up a toe fracture since her last visit on her left foot when dropping furniture on her toe. She has been seeing gluer and slicer hand since that time. She is taking terbenafine and taking liver enzymes regularly with her foot doctor. labs from 12/16:a1c of 5.8% up from 5.6%insulin 7.9 uU/mlvit D 59 ng/MLPTH 51 pg/MLcalcium 9.6 mg/dLglucose 86 mg/dLCr normalLFT Normal Ashley Allen MD [address] [facility] [employer] [address], [place], [address], [place] 03/18/2023 10:08:35 05/06/2023 text/html ROS as noted in the HPI Here for wellness exam. Has spot on nose x several weeksHas been using sample of anoro 1 puff daily and has noticed improvement in her breathingno chest pain, no sob Ashley Ceja MD [address] [employer] [facility] [employer] [address], [place], [address], [place] 05/06/2023 08:42:25 08/18/2023 text/html ROS as noted in the HPI 63 yo female comes in for follow up in management of postmenopausal osteoporosis and impaired fasting glucose (A1C of 5.6%). Hypertensive in clinic today likely white coat. last seen in February at that time we continued ibandronate and natural insulin sensitizers. She is not due for another bone density scan until Oct this year. She fractured her back in 2020 and she switched to Dr. Ceja in January 2022-she is on ibandronate for 1.5 years total. She was taking alendronate weekly and did not tolerate well and tolerating the ibandronate well. She denies significant gastritis and GERD. Repeat BP of 140/94 mmHg-denies any headaches, visual changes or chest pain. labs from 07/23/23:a1c 5.6%vit D 53 ng/mlTSH of 1.63 uIU/mlFT4 of 1.1 ng/mlinsulin 7.9 uU/mlglucose 103 mg/dLCr normalLFT normalPTH 39 pg/ml with calcium of 9.3 mg/dL Ashley Allen MD [address], [facility] [address], [place], [address], [employer] [facility] 08/18/2023 10:05:32 02/25/2024 text/html ROS as noted in the HPI soft nontender lump on her right first finger of right hand nontender, has h/o ganglion cyst. She does have h/o osteoporosis. Ashley Ceja MD [address], [facility] [address], [place], [address], [place] 02/25/2024 10:12:12 OBGyn Episode No OBEpisode recorded.
--- OUTSIDE RECORDS SUMMARY | 2025-10-24 07:58 | XMS_ITS | Clinical Summary ---
Author Organization [facility] Address Formerly [facility], [facility] [place] [address] Care Team Providers Care Pipefitter Welder Name Role Phone Sabra Hansen Primary Care Provider [phone] Allergies No known active allergies Medications vitamin B-12 500 MCG tablet Take 500 mcg by mouth daily. Active Calcium Carb-Cholecalci ferol (CALCIUM 1000 + D OR) Take 2,000 Units by mouth daily. Active albuterol sulfate HFA 108 (90 Base) MCG/ACT inhaler Inhale 2 puffs into the lungs every 6 (six) hours as needed. Active ibandronate (BONIVA) 150 MG tablet Take 1 tablet (150 mg total) by mouth every 30 (thirty) days. 10/26/2022 Active ANORO ELLIPTA 62.5-25 MCG/ACT inhaler INHALE 1 PUFF BY MOUTH ONCE DAILY DIRECTED 05/06/2023 Active psyllium (METAMUCIL) wafer Take by mouth daily. Active Collagen-Vitami n C-Biotin (COLLAGEN 1500/C) 500-50-0.8 MG Cap Take 1 capsule by mouth daily. Active atorvastatin (LIPITOR) 40 MG tablet Take 1 tablet (40 mg total) by mouth nightly at bedtime. at bedtime 90 tablet 3 08/05/2025 Active Active Problems Problem Noted Date Diagnosed Date Elevated blood pressure read ing in office without diagnosis of hypertension 08/04/2025 Essential (primary) hypertension 06/19/2023 Hyperlipidemia 05/06/2023 Coronary artery calcification 06/19/2022 Pure hypercholesterolemia 06/19/2022 Resolved Problems Problem Noted Date Diagnosed Date Resolved Date Peripheral vascular disease 06/19/2022 Encounters Date Type Department Care Team Description 08/05/2025 9:00 AM CDT Office Visit [facility], [address] [address] Alisha Matos PA-C Lipids (Annual follow up) 08/05/2025 Travel from Last 3 Months Immunizations Immunization Administration Dates Next Due COVID-19 Vaccine (Generic) 11/01/2021,01/30/2021 ,01/02/2021 Influenza Adult (Generic) 09/02/2021,02/2021,08/19/2020,08/25/2019,08/10,08/04/2017,09/08/2016 Family History Medical History Relation Comments Heart Attack Father Open Heart Father Heart Attack Mother Stroke Mother Relation Status Comments Father (Age 74) Mother (Age 82) Social History Tobacco Use Types Packs/Day Years Used Date Smoking Tobacco: Every Day Cigarettes Smokeless Tobacco: Never Tobacco Cessation:Ready to Q uit: Not Asked; Counseling Given: Not Answered Comments:Since early Teens per pt Alcohol Use Standard Drinks/Week Comments Yes 0 (1 standard drink = 0.6 oz pur e alcohol) Drinks wine regularly Comments Unknown Sex and Gender Information Value Date Recorded Sex Assigned at Not on file Legal Sex Female 4:42 PM CDT Gender Identity Not on file Sexual Orientation Not on file 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 Not on file Not on file Last Filed Vital Signs Vital Sign Reading Time Taken Comments Blood Pressure 154/94 08/05/2025 9:17 AM CDT Pulse 105 08/05/2025 9:17 AM CDT Temperature - - Respiratory Rate - - Oxygen Saturation 98% 08/05/2025 8:55 AM CDT Inhaled Oxygen Concentration - - Weight 61.7 kg (136 lb) 08/05/2025 8:55 AM CDT Height 167.6 cm (5' 6) 08/05/2025 8:55 AM CDT Body Mass Index 21.95 08/05/2025 8:55 AM CDT Plan of Treatment Upcoming Encounters Date Type Department Care Team (Late st Contact Info) Description 08/18/2026 8:30 AM CDT Office Visit [facility], [address] [address] Zach Sandoval MD [facility]. [address] [place], [place] [id number] Health Maintenance Due Date Last Done Comments Cervical Cancer Screening Pap Smear (Age 30 to 64) Every 3 Years 1961 Colorectal Cancer Screening Colonoscopy (10 Years) 1961 Annual Physical 1964 Hepatitis C 1979 Pneumococcal Vaccine: 50+ Years (1 of 2 - PCV) 1980 Zoster Vaccines (1 of 2) 1980 Cervical Cancer Screening Pap with HPV Testing (Age 30 to 64) Every 5 Years 1991 Cervical Cancer Screening with HPV 1991 Mammogram Screening 2001 RSV Immunization or 60+ Years (1 - Risk 60-74 years 1-dose series) 2021 ASCVD LDL 09/19/2023 09/19/2022, 03/05/2022 COVID-19 Vaccine ( season) 2025 11/01/2021, 10/13/2021, 01/30/2021, Additional history exists Influenza Adult (#1) 2025 09/02/2021, 08/27/2021, 08/19/2020, Additional history exists DTaP, Tdap and Td Vaccines (2 - Td or Tdap) 12/28/2034 12/28/2024 Hepatitis A Vaccines Aged Out No long er eligible based on patient's age to complete this topic Meningococcal B Vaccine Aged Out No l onger eligible based on patient's age to complete this topic Meningococcal Vaccine Aged Out No dawson sil eligible based on patient's age to complete this topic RSV Immunizations Under 20 Months Aged Out No longer eligible based on patient's age to complete this topic Procedures Procedure Name Priority Date/Time Associated Diagnosis Comments LIPID PANEL Routine 09/19/2022 from Last 3 Months or Most Recently Relevant to Health Maintenance Results * LIPID PANEL (09/19/2022) CHOLESTEROL 147 HDL 82 TRIGLYCERIDES 51 NON HDL CHOLESTEROL 65 LDL (CALCULATED) 52 09/19/2022 us Default History Genericprovider LABORATORY Final Result from Last 3 Months or Most Recently Relevant to Health Maintenance Insurance [employer] Care Teams Pipefitter Welder Relationship Specialty Start Date End Date Sabra Hansen PA PCP - General PHYSICIAN SPECIAL OFFICER AUTOMAT 07/30/24
--- OUTSIDE RECORDS SUMMARY | 2025-10-24 07:58 | XMS_ITS | Encounter Summary ---
Author Organization [facility] Address [address] [place] [address] Care Team Providers Care Entry Level Project Coordinator Name Role Phone Ashley Ceja MD Primary Care Provider [phone] None, Provider Primary Care Provider Sabra Ling Primary Care Provider [phone] Encounter Details Date Type Department Care Team (Late Contact Info) Description 03/16/2022 Abstract [facility] [address] [address] Gilma Hoang, A Social History Tobacco Use Types Packs/Day Years Used Date Smoking Tobacco: Every Day Cigarettes Smokeless Tobacco: Never Comments:Since early Teens p er pt Alcohol Use Standard Drinks/Week Comments Yes [...] file Not on file Not on file COVID-19 Exposure Response Date Recorded In the last 10 days, have yo u been in contact with someone who was confirmed or suspected to have Coronavirus/COVID-19? No / Unsure 03/01/2022 12:49 PM CDT documented as of this encounter Plan of Treatment Upcoming Encounters Date Type Department Care Team (Late Contact Info) Description 08/18/2026 8:30 AM CDT [facility] [address] [address] Zach Sandoval MD Three [address] [address] documented as of this encounter Procedures Procedure Name Priority Date/Time Associated Diagnosis Comments RHEUMATOID ARTHRITIS Routine 02/25/2022 TSH (OUTSIDE LAB) Routine 02/25/2022 HEMOGLOBIN, GLYCOSYLATED Routine 02/25/2022 VITAMIN B-12 Routine 02/25/2022 COMPREHENSIVE METABOLIC PANEL Routine 02/25/2022 CBC, AUTO, NO DIFF Routine 02/25/2022 VITAMIN D, 25 OH Routine 02/25/2022 FERRITIN Routine 02/25/2022 documented in this encounter Results * RHEUMATOID ARTHRITIS (02/25/2022) RHEUMATOID FACTOR (QN) 414 02/25/2022 us Doc [facility] Abstract OTHER Final Result * HEMOGLOBIN, GLYCOSYLATED (02/25/2022) HGB A1C 5.7 % 02/25/2022 us Doc [facility] Abstract LABORATORY Final Result * VITAMIN D, 25 OH (02/25/2022) VITAMIN D 25 HYDROXY S/P/B 53 02/25/2022 us Doc [facility] Abstract LABORATORY Final Result * VITAMIN B-12 (02/25/2022) VITAMIN B12 S/P/B 569 02/25/2022 us Doc [facility] Abstract LABORATORY Final Result * TSH (OUTSIDE LAB) (02/25/2022) Pathologist [facility] TSH 1.23 02/25/2022 us Doc [facility] Abstract LAB-OUTSIDE/ABSTRACTED Final Result * FERRITIN (02/25/2022) Pathologist [facility] FERRITIN 51 02/25/2022 us Doc [facility] Abstract LABORATORY Final Result * CBC, AUTO, NO DIFF (02/25/2022) [facility] WBC 6.9 RBC 4.52 HGB 14.4 HCT 43.0 MCV 95.1 MCH 31.9 MCHC 33.5 RDW 12.2 PLT 225 MPV 12.4 02/25/2022 us Doc [facility] Abstract LABORATORY Final Result * COMPREHENSIVE METABOLIC PANEL (02/25/2022) [facility] SODIUM S/P/B 110 POTASSIUM S/P/B 4.2 CO2 28 CHLORIDE S/P/B 103 GLUCOSE 100 mg/dL CALCIUM S/P/B 9.5 BUN 12 CREATININE S/P/B 0.86 0.5 - 1.0 EGFR AFR. AMER. 85 <=90 EGFR NON-AFR. AMER. 73 <=90 ALKALINE PHOSPHATASE S/P/B 61 ALT 14 AST 17 BILIRUBIN TOTAL S/P/B 0.8 ALBUMIN S/P/B 4.8 3.5 - 5.0 TOTAL PROTEIN S/P/B 7.0 02/25/2022 us Doc [facility] Abstract LABORATORY Final Result documented in this encounter Visit Diagnoses Not on filedocumented in this encounter Care Teams Entry Level Project Coordinator Relationship Specialty Start Date End Date Ashley Ceja MD [address] [place] [address] [place] [address] PCP - General FAMILY PRACTICE 02/27/22 07/24/24 None, Provider, PCP - General UNKNOWN PHYSICIAN SPECIALTY 07/25/24 07/29/24 Sabra Hansen PA PCP - General PHYSICIAN ARCHITECTURAL MODEL MAKER 07/30/24 documented as of this encounter
--- OUTSIDE RECORDS SUMMARY | 2025-10-24 07:58 | XMS_ITS | Clinical Summary ---
Author Organization [facility] Address [address] [place] [address] Care Team Providers Care Clinical Sales Consultant Name Role Phone Duy Jacques DO Primary Care Provider [phone] Allergies No known active allergies Medications cyclobenzaprine (FLEXERIL) 10 mg tablet Take 1 tablet (10 mg total) by mouth 2 (two) times a day as needed for muscle spasms 20 tablet 09/27/2021 Active Social History Tobacco Use Types Packs/Day Years Used Date Smoking Tobacco: Never Assessed Personal Safety Answer Date Recorded Getting School Help Needed Not on file 11/27 Comments Unknown Sex and Gender Information Value Date Recorded Sex Assigned at Not on file Legal Sex Female 8:35 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 Gender Identity Not on file Sexual Orientation Not on file Last Filed Vital Signs Vital Sign Reading Time Taken Comments Blood Pressure 144/81 09/27/2021 9:00 PM CDT Pulse 73 09/27/2021 9:00 PM CDT Temperature 36.3 C (97.4 F) 09/27/2021 7:01 PM CDT Respiratory Rate 18 09/27/2021 9:00 PM CDT Oxygen Saturation 98% 09/27/2021 9:00 PM CDT Inhaled Oxygen Concentration - - Weight 61.2 kg (135 lb) 09/27/2021 7:01 PM CDT Height 167.6 cm (5' 6) 09/27/2021 7:01 PM CDT Body Mass Index 21.79 09/27/2021 7:01 PM CDT Plan of Treatment Health Maintenance Due Date Last Done Comments Breast Cancer Screening-Mammogram 1961 Cervical Cancer Screening 1961 Colon Cancer Screening-Colonoscopy 1961 Depression Screening 1961 Hepatitis C Screening 1961 DTaP/Tdap/Td Vaccine (1 - Tdap) 1972 Hepatitis B Screening 1979 Regular Well Visit/Exam 18-64 1979 Zoster Vaccine (1 of 2) 2011 Covid-19 Vaccine (3 - 2024- season) 2025 01/30/2021, 01/02/2021 Influenza Vaccine (#1) 2025 , 08/27/2021, 08/19/2020, Additional history exists Pneumococcal vaccine <65 Aged Out No longer eligible based on patient's age to complete this topic Insurance [facility] Care Teams Clinical Sales Consultant Relationship Specialty Start Date End Date Duy Jacques DO PCP - General 09/27/21
--- OUTSIDE RECORDS SUMMARY | 2025-10-24 07:58 | XMS_ITS | Encounter Summary ---
Author Organization [facility] Address [address] [place] [address] Care Team Providers Care Immunologist Name Role Phone Ashley Ceja MD Primary Care Provider [phone] None, Provider Primary Care Provider Sabra Ling Primary Care Provider [phone] Encounter Details Date Type Department Care Team (Late Contact Info) Description 09/20/2022 Abstract [facility], [facility] [address] [place], [place] [id number] Man Nunez MA Social History Tobacco Use Types Packs/Day Years [...] file Not on file Not on file documented as of this encounter Plan of Treatment Upcoming Encounters Date Type Department Care Team (Late Contact Info) Description 08/18/2026 8:30 AM CDT Office Visit [facility], [facility] [address] [place], [place] [address] Zach Sandoval MD [facility]. [facility] [address] [place], [place] [address] documented as of this encounter Procedures Procedure Name Priority Date/Time Associated Diagnosis Comments LIPID PANEL Routine 09/19/2022 documented in this encounter Results * LIPID PANEL (09/19/2022) CHOLESTEROL 147 HDL 82 TRIGLYCERIDES 51 NON HDL CHOLESTEROL 65 LDL (CALCULATED) 52 09/19/2022 us Default History Genericprovider LABORATORY Final Result documented in this encounter Visit Diagnoses Not on filedocumented in this encounter Care Teams Immunologist Relationship Specialty Start Date End Date Ashley Ceja MD [address] [place] [address] [place] [address] PCP - General FAMILY PRACTICE 02/27/22 07/24/24 None, Provider, PCP - General UNKNOWN PHYSICIAN SPECIALTY 07/25/24 07/29/24 Sabra Hansen PA PCP - General PHYSICIAN GEOCHEMICAL LABORATORY TECHNICIAN 07/30/24 documented as of this encounter
--- OUTSIDE RECORDS SUMMARY | 2025-10-24 07:58 | XMS_ITS | Clinical Summary ---
Author Organization [facility] Address [address] [place] [address] Care Team Providers Care Battery Inspector Name Role Phone Ashley Ceja MD Primary Care Provider [phone] Source Comments [facility],non-owned Affiliates and Associated Physician Practices is amultiple site organization consisting of ambulatory clinics and hospital sitesin [place], [place], [place] and [place]. This disclosure is being madepursuant to the Care Everywhere program and may not contain all information available regarding this patient. Last updated 18.[facility] Allergies No known active allergies Medications * Be aware that medications may not be up to date on this document. Alwaysverify current medications with the patient. 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 Gender Identity Not on file Sexual Orientation Not on file Plan of Treatment Health Maintenance Due Date Last Done Comments COLOGUARD (AGES 45-75) - COLON CA SCREENING 1961 COLON MONITORING 1961 COLONOSCOPY - COLON CA SCREENING 1961 CT COLONOGRAPHY - COLON CA SCREENING 1961 Colorectal Cancer Screening 1961 FIT - COLON CA SCREENING 1961 FLEX SIG - COLON CA SCREENING 1961 MAMMOGRAM 1961 HIV SCREENING 1976 HEPATITIS C SCREENING 05/03/1979 DTAP/TDAP/TD VACCINES (1 - Tdap) 1980 PNEUMOCOCCAL VACCINE 50+ (1 of 2 - PCV) 1980 Cervical Cancer Screening 1982 PAP SMEAR 1982 PAP with HPV 1991 ZOSTER VACCINE (1 of 2) 2011 DEPRESSION SCREENING 11/24/2024 COVID-19 VACCINE (3 - season) 2025 01/30/2021, 01/02/2021 INFLUENZA VACCINE (#1) 2025 , 08/27/2021, 08/19/2020, Additional history exists Respiratory Syncytial Virus (RSV) Vaccine Pt: or over 60 yrs (1 - 1-dose 75+ series) 2036 HEPATITIS B VACCINE Aged Out No longe r eligible based on patient's age to complete this topic HIB VACCINE Aged Out No longer eligi ble based on patient's age to complete this topic HPV VACCINE Aged Out No longer eligi ble based on patient's age to complete this topic MENINGOCOCCAL (Group B) VACCINE SHARED DECISION-MAKING Aged Out No longer eligible based on patient's age to complete this topic MENINGOCOCCAL GROUPS A/C/Y/W VACCINE Aged Out No longer eligible based on patient's age to complete this [place] [address] AETNA AETNA Care Teams Battery Inspector Relationship Specialty Start Date End Date Ashley Ceja MD [address] [place] [address] RAHEEM Lockhart [phone] PCP - General 02/25/22
--- OUTSIDE RECORDS SUMMARY | 2025-10-24 07:58 | XMS_ITS | Clinical Summary ---
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 2 Active Anoro Ellipta 62.5-25 mcg/actuation Disk with Device Inhale 1 puff every day by inhalation route for 90 days. 3 Active psyllium husk, with sugar, (Metamucil Fiber Thin) 2 gram Wafer Take by mouth daily. Active CALCIUM CITRATE-VITAMIN D3 ORAL Take by mouth. Activ e polyethylene glycol 3350 (MIRALAX) 17 gram/dose Powder Take by mouth daily. Dissolve in 8 ounces of fluid and drink entire liquid Active Active Problems No known active problems Encounters Date Type Department Care Team Description 10/11/2025 External Device Data ST[facility] ABSTRACTION Provider, Abstract 09/21/2025 External Device Data ST[facility] ABSTRACTION Provider, Abstract 09/21/2025 External Device Data ST[facility] ABSTRACTION Provider, Abstract 09/14/2025 External Device Data ST[facility] ABSTRACTION Provider, Abstract 09/13/2025 External Device Data [facility] ABSTRACTION Provider, Abstract 08/09/2025 External Device Data ST[facility] ABSTRACTION Provider, Abstract 08/02/2025 External Device Data ST[facility] ABSTRACTION Provider, Abstract from Last 3 Months Family History Medical History Relation Name Comments Prostate Cancer Brother No Known Problems Daughter Heart Disease Father Prostate Cancer Father Cancer Mother unknown orgin Diabetes Mother Heart Disease Mother Stomach Cancer Sister Relation Name Status Comments Brother Alive Daughter Alive Father Mother Sister Alive Social History Tobacco Use Types Packs/Day Years Used Date Smoking Tobacco: Every Day Cigarettes 0.5 50.3 Started: 06/27/1975 Smokeless Tobacco: Never Alcohol Use Standard Drinks/Week Comments Yes 0 (1 standard drink = 0.6 oz pur e alcohol) Daily Comments Unknown Sex and Gender Information Value Date Recorded Sex Assigned at Not on file Legal Sex Female 2:50 PM CDT Gender Identity Not on file Sexual Orientation Not on file Last Filed Vital Signs Vital Sign Reading Time Taken Comments Blood Pressure 113/72 06/27/2025 2:45 PM CDT Pulse 109 06/27/2025 2:45 PM CDT Temperature 36.7 C (98.1 F) 06/27/2025 2:45 PM CDT Respiratory Rate 15 06/27/2025 2:45 PM CDT Oxygen Saturation 96% 06/27/2025 2:45 PM CDT Inhaled Oxygen Concentration - - Weight 62.3 kg (137 lb 6.4 oz) 06/27/2025 2:45 PM CDT Height 167.6 cm (5' 6) 06/27/2025 2:45 PM CDT Body Mass Index 22.18 06/27/2025 2:45 PM CDT Plan of Treatment Upcoming Encounters Date Type Department Care Team (Late st Contact Info) Description 01/16/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 [facility] Oncology and Hematology [facility] [address] [facility] [address] [place] [address] Filippo Marvin MD [address] [facility] [address] [place] [address] Health Maintenance Due Date Last Done Comments ZOSTER VACCINE (1 of 2) 1980 HPV/Cotest (21-29) 1982 CERVICAL CANCER SCREENING 1991 HPV/Cotest (30-65) 1991 PAP SMEAR 1991 BREAST CANCER SCREENING 2001 COLORECTAL SCREENING 2006 Colorectal Cancer Screening 2006 FIT-DNA Q 3 years 2006 FIT/FOBT Q 1 year 2006 Flex Sig/CT Colonography Q 5 years 2006 RSV VACCINE (60+ or ) (1 - Risk 50-74 years 1-dose series) 2011 COVID-19 Vaccine (3 - Moderna risk series) 02/27/2021 01/30/2021, 01/02/2021 Lung Cancer Screening 03/06/2024 03/06/2023 INFLUENZA VACCINE (#1) 2025 DTAP/TDAP/TD VACCINES (2 - Td or Tdap) 12/28/2034 Insurance [employer] CHOICE POS II
== END 2025-10-24 07:50 | disposition home or self-care (01) ==
PROVIDERS: PCP Physician Assistant; Visit Provider Internal Medicine
DX: M81.0 Age-related osteoporosis without current pathological fracture (principal); M85.852 Other specified disorders of bone density and structure, left thigh; M85.851 Other specified disorders of bone density and structure, right thigh
CPT/HCPCS: 77080